=== PATIENT | female | born 1960 | race Caucasian/White ===

== ENCOUNTER 2025-06-27 17:40 | Emergency (ER) | payer BC ==
[~2025-06-27] VITALS: Ht 165.1 cm; Wt 81.6 kg
[2025-06-27 17:47] VITALS: BP 90/57; TEMP 97.9
[2025-06-27 18:57] VITALS: O2SAT 98
== END 2025-06-27 18:57 | disposition home or self-care (01) ==
LOC: ER 17:43
DX: I83.899 Varicose veins of unspecified lower extremity with other complications (principal)